=== PATIENT | female | born 1990 | race Caucasian/White ===

== ENCOUNTER 2020-05-28 08:17 | Inpatient (IN) | payer OTHER ==
[~2020-05-28] VITALS: Ht 152.4 cm; Wt 51.8 kg
[2020-05-28] MEDS ORDERED: LORazepam 2 MG TAB PO STA (08:48)
[2020-05-28 09:15] LABS: HEMOGLOBIN 10.4 g/dl (12.0-15.5); MEAN CORPUSCULAR HEMOGLOBIN 22.1 pg (27.0-33.0); MEAN CORPUSCULAR HGB CONC 29.7 g/dl (32.0-36.5); MEAN CORPUSCULAR VOLUME 74.5 fl (80.0-96.0); PLATELET COUNT, AUTOMATED 555 10^3/uL (150-450); WHITE BLOOD COUNT 9.2 10^3/uL (4.0-10.0)
[2020-05-28 09:32] LABS: AMPHETAMINES LEVEL URINE NEGATIVE (NEGATIVE); BARBITURATES URINE NEGATIVE (NEGATIVE); BENZODIAZEPINES URINE NEGATIVE (NEGATIVE); CANNABINOIDS URINE POSITIVE (NEGATIVE); COCAINE METABOLITE URINE POSITIVE (NEGATIVE); METHADONE URINE NEGATIVE (NEGATIVE); OPIATES URINE NEGATIVE (NEGATIVE); PHENCYCLIDINE URINE NEGATIVE (NEGATIVE)
[2020-05-28 09:37] LABS: HCG, SERUM QUALITATIVE NEGATIVE (NEGATIVE)
[2020-05-28 09:41] LABS: ACETAMINOPHEN LEVEL < 2.0 UG/ML (10.0-30.0); ALBUMIN 3.6 GM/DL (3.2-5.2); ALT/SGPT 57 U/L (12-78); BILIRUBIN,DIRECT < 0.1 MG/DL (0.0-0.2); BILIRUBIN,TOTAL 0.2 MG/DL (0.2-1.0); BLOOD UREA NITROGEN 11 MG/DL (7-18); CALCIUM LEVEL 8.9 MG/DL (8.5-10.1); CARBON DIOXIDE LEVEL 29 MEQ/L (21-32); CHLORIDE LEVEL 106 MEQ/L (98-107); CREATININE FOR GFR 0.76 MG/DL (0.55-1.30); ETHYL ALCOHOL (ETHANOL) < 0.003 % (0.000-0.010); GLOMERULAR FILTRATION RATE > 60.0 (>60); GLUCOSE, FASTING 83 MG/DL (70-100); POTASSIUM SERUM 3.9 MEQ/L (3.5-5.1); SALICYLATE LEVEL 3.5 MG/DL (5.0-30.0); SODIUM LEVEL 142 MEQ/L (136-145); TOTAL PROTEIN 7.1 GM/DL (6.4-8.2)
[2020-05-28] MEDS ORDERED: ACETAMINOPHEN TAB 650MG DOSE (2X325MG) PO PRN (16:45)
[2020-05-28] MEDS ORDERED: OLANZapine ORAL DISINTEGRATING TAB 5MG PO PRN (16:45)
[2020-05-28] MEDS ORDERED: MAALOX 30 ML SUSP *UDC PO PRN (16:45)
[2020-05-28] MEDS ORDERED: MOM 30ML SUSPENSION UDC PO PRN (16:45)
[2020-05-28] MEDS ORDERED: traZODone 50 MG TAB PO PRN (16:45)
[2020-05-28 17:15] VITALS: BP 109/55
[2020-05-28] MEDS ORDERED: HALOPERIDOL 5MG/ML VIAL (J1630 PER 1) IM STA (17:26)
[2020-05-28] MEDS ORDERED: LORazepam 2 MG/ML VIAL IM STA (17:26)
[2020-05-28] MEDS: clonazePAM 0.5 MG TAB PO SCH (21:00)
[2020-05-29 07:03] VITALS: BP 97/51
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
--- NOTE | 2020-05-29 09:28 | MHPR ---
General Date: May 29, 2020 Time: 11:00 Post-Restraint Evaluation THE OUTCOME OF THE RESTRAINT: positive EFFECTIVENESS OF THE RESTRAINT: Mechanical and/or chemical: [Positive]. ANY EVIDENCE THAT THE PATIENT WAS AFFECTED EMOTIONALLY: n/a ANY NEED FOR COUNSELING/ASSISTANCE: n/a CHANGES IN TREATMENT PLAN: premedication earlier in agitation RECOMMENDATIONS FOR FUTURE INCIDENTS: as above PIA ROSS DO May 29, 2020 09:28
[2020-05-29] MEDS: clonazePAM 0.5 MG TAB PO SCH ×2 (09:29→21:07)
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
[2020-05-30 06:31] VITALS: BP 94/44
[2020-05-30] MEDS: clonazePAM 0.5 MG TAB PO SCH (09:17)
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
[2020-05-30] MEDS ORDERED: CLON0.5T2 PO (11:37)
== END 2020-05-30 13:05 | disposition home or self-care (01) | DRG 776 ==
LOC: M ED 08:17 → M ED INP 16:37 → M PSY 17:13
PROVIDERS: ADMIT Psychiatry & Neurology Addiction Medicine; ATTEND Psychiatry & Neurology Addiction Medicine
DX: F19.951 Other psychoactive substance use, unspecified with psychoactive substance-induced psychotic disorder with hallucinations (principal); D64.9 Anemia, unspecified; F41.9 Anxiety disorder, unspecified; Z88.0 Allergy status to penicillin; Z79.899 Other long term (current) drug therapy